=== PATIENT | male | born 1965 | race Caucasian/White ===

== ENCOUNTER 2016-11-17 08:31 | Emergency (ER) | payer OTHER ==
[2016-11-17] MEDS ORDERED: Ibuprofen TAB* 600 MG PO ONE (10:07)
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
[2016-11-17 10:46] VITALS: BP 145/85
--- NOTE | 2016-11-17 10:46 | RAD ---
Indication: LEFT ankle pain and swelling following injury. Superior and medial pain. Comparison: June 18, 2015 Technique: AP, mortise, and lateral views LEFT ankle. Report: Congruent ankle mortise. Indolent periosteal thickening along the lateral margin of the lateral malleolus is chronic. No fracture or osteochondral lesion evident. Suggestion of talocrural joint effusion. Edema at the pre-Achilles fat. Small Achilles tendon insertion bone spur. Soft tissue swelling most prominent over the medial malleolus. IMPRESSION: Soft tissue swelling and evidence for talocrural joint effusion. Negative for fracture or malalignment. Consider potential ligament injury.
== END 2016-11-17 11:10 | disposition home or self-care (01) ==
LOC: UCEAST 08:31
DX: S93.402A Sprain of unspecified ligament of left ankle, initial encounter (principal); S60.022A Contusion of left index finger without damage to nail, initial encounter; V86.59XA Driver of other special all-terrain or other off-road motor vehicle injured in nontraffic accident, initial encounter; Y93.89 Activity, other specified; Y92.9 Unspecified place or not applicable; R03.0 Elevated blood-pressure reading, without diagnosis of hypertension; Z88.1 Allergy status to other antibiotic agents; F12.90 Cannabis use, unspecified, uncomplicated; Z87.891 Personal history of nicotine dependence
CPT/HCPCS: 99213; A9270-GY; G0463

== ENCOUNTER 2018-03-03 18:47 | Emergency (ER) | payer OTHER ==
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
[2018-03-03] MEDS ORDERED: NS 0.9% 1000 ML* 1,000 ML IV ONE (19:55)
[2018-03-03] MEDS ORDERED: HYDROmorphone INJ* 2 MG/ML CARPUJECT SYRINGE IV SLOW PU ONE (19:55)
[2018-03-03] MEDS ORDERED: Metoclopramide IV* 5 MG/ML 2 ML VIAL IV SLOW PU ONE (19:56)
--- NOTE | 2018-03-03 20:12 | RAD ---
INDICATION: Left clavicle trauma. TECHNIQUE: 2 views of the left clavicle were obtained. FINDINGS: There is a transverse slightly comminuted displaced fracture of the clavicle approximately at the junction of the middle and lateral thirds. The distal lateral fragment is displaced inferior one shaft diameter. There are 2 nodular calcific densities which project over the chest likely representing calcific debris less likely calcified pulmonary nodules. There is also calcific debris which projects over the soft tissues superior to the clavicle. IMPRESSION: 1. SLIGHTLY COMMINUTED DISPLACED FRACTURE OF THE CLAVICLE. 2. CALCIFIC DEBRIS IN OR ON THE SOFT TISSUES.
--- NOTE | 2018-03-03 20:15 | RAD ---
INDICATION: Left humerus injury. TECHNIQUE: 2 views of the left humerus were obtained. FINDINGS: The humerus appears intact. No fracture is seen. Again note is made of the displaced fracture of the clavicle. There is calcific debris that projects over the soft tissues in the arm. IMPRESSION: 1. DISPLACED FRACTURE OF THE CLAVICLE. NO ADDITIONAL FRACTURE IS SEEN. 2. CALCIFIC DEBRIS IN OR ON THE SOFT TISSUES. RECOMMEND CLINICAL CORRELATION.
[2018-03-03 20:17] LABS: ABS Basophils 0 10^3/ul (0-0.2); ABS Eosinophils 0 10^3/ul (0-0.6); ABS Lymphocytes 1.3 10^3/ul (1.0-4.8); ABS Monocytes 0.8 10^3/ul (0-0.8); ABS Neutrophils 15.8 10^3/ul (1.5-7.7); ABS Nucleated RBC 0 10^3/ul; Eosinophil % 0.1 % (0-6); Hematocrit 45 % (42-52); Hemoglobin 15.3 g/dl (14.0-18.0); Mean Corpuscular HGB Conc 34 g/dl (31-36); Mean Corpuscular Hemoglobin 31 pg (27-31); Mean Corpuscular Volume 93 fL (80-94); Mean Platelet Volume 9.5 um3 (7.4-10.4); Nucleated Red Blood Cells % 0; Platelet Count 211 10^3/ul (150-450); Red Blood Count 4.86 10^6/ul (4.00-5.40); Red Cell Distribution Width 13 % (10.5-15)
--- NOTE | 2018-03-03 20:24 | RAD ---
INDICATION: Left rib injury. COMPARISON: There are no prior studies available for comparison. TECHNIQUE: 4 views of the left ribs and dual-energy PA views of the chest were obtained. FINDINGS: The examination is limited due to positioning and the patient's clinical status. Again note is made of a displaced fracture of the clavicle. There appear to be fractures of the left lateral fourth through sixth ribs. The heart is within normal limits in size. The lungs are underinflated and grossly clear. No pleural effusion or pneumothorax is seen. There is slightly irregularly shaped calcific nodular densities which project over the left hemithorax likely representing calcific debris less likely calcified pulmonary nodules. The results of this exam were discussed with the referring clinician. IMPRESSION: 1. FRACTURES OF THE LEFT FOURTH THROUGH SIXTH LATERAL RIBS, AGE INDETERMINATE. 2. CALCIFIED NODULAR DENSITIES PROJECT OVER THE LEFT HEMITHORAX LIKELY REPRESENTING CALCIFIC DEBRIS LESS LIKELY CALCIFIED PULMONARY NODULES.
--- NOTE | 2018-03-03 20:25 | RAD ---
INDICATION: Left shoulder injury. TECHNIQUE: 4 views of the left shoulder were obtained. FINDINGS: Again note is made of a displaced fracture of the clavicle. No additional fracture is seen. Joint spaces appear maintained. There is calcific debris that projects over the soft tissues around the shoulder. IMPRESSION: 1. DISPLACED FRACTURE OF THE CLAVICLE, NO ADDITIONAL FRACTURE IS SEEN. 2. CALCIFIC DEBRIS IN OR ON THE SOFT TISSUES AROUND THE SHOULDER.
[2018-03-03 20:26] LABS: INR 0.94 (0.77-1.02)
[2018-03-03 20:34] LABS: EGFR Non-African American 66.8 (>60)
[2018-03-03] MEDS ORDERED: Iohexol 300* (CONTRAST) 10 ML SDV IV ONE (22:25)
[2018-03-03] MEDS ORDERED: Lidocaine 2% PF * 5 ML VIAL ONE (22:57)
[2018-03-03] MEDS ORDERED: Tetan/Diph/Pertus SYR(Tdap)* 0.5 ML SYR(BOOSTRIX) use SYR IM ONE (23:38)
[2018-03-04 00:05] VITALS: BP 153/99
--- NOTE | 2018-03-04 08:00 | RAD ---
INDICATION: Pain in the distal fourth and fifth phalanges following injury. COMPARISON: No relevant prior exams available on the [facility] [place] PACS for comparison. TECHNIQUE: AP, lateral, and oblique views LEFT hand. REPORT AND IMPRESSION: #. Grossly nondisplaced fracture at the dorsal articular base of the fifth distal phalanx. #. Negative for additional fracture or articular malalignment. #. Soft tissue swelling most prominent at the fifth finger. R2
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
== END 2018-03-04 00:03 | disposition home or self-care (01) ==
LOC: ED 18:47
DX: S42.002A Fracture of unspecified part of left clavicle, initial encounter for closed fracture (principal); S22.42XA Multiple fractures of ribs, left side, initial encounter for closed fracture; S62.667A Nondisplaced fracture of distal phalanx of left little finger, initial encounter for closed fracture; V28.4XXA Motorcycle driver injured in noncollision transport accident in traffic accident, initial encounter; Y93.55 Activity, bike riding; Y92.9 Unspecified place or not applicable; J98.9 Respiratory disorder, unspecified; Z87.898 Personal history of other specified conditions; Z88.3 Allergy status to other anti-infective agents
CPT/HCPCS: 36415; 71260; 74177; 80053; 80320; 82150; 82550; 83605; 85025; 85610; 85730; 86850; 86900; 86901; 90715; 96361; 96374; 96375; 99283; G0480; J1170; J2765; Q9967

== ENCOUNTER 2018-03-20 08:09 | Day surgery (SDC) | payer OTHER ==
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
[~2018-03-20 08:09] MED LIST: Buffered Lidocaine 0.9% SYRIN* 5 ML/SYR SYRINGE INTRADERM ONE
[2018-03-20] MEDS ORDERED: ceFAZolin 2 GM PREMIX (*) 2 GM/50 ML BAG IVPB ONE (08:39)
[2018-03-20] MEDS ORDERED: Clindamycin 900 MG IVPREMIX(* 900 MG/50 ML SDV IV ONE (09:16)
[2018-03-20] MEDS ORDERED: fentaNYL* 50 MCG/ML 2 ML VIAL (100 MCG VIAL) ONE ×3 (09:57→12:57)
[2018-03-20] MEDS ORDERED: Midazolam* 1 MG/ML 2 ML VIAL (2 MG) ONE (09:58)
[2018-03-20] MEDS ORDERED: Famotidine IV* 10 MG/ML 2 ML (20 mg) ONE (10:19)
[2018-03-20] MEDS ORDERED: ROPIVACAINE 5 MG/ML 30 ML BTL (0.5%) ONE (10:45)
[2018-03-20] MEDS ORDERED: Ropivacaine* 2 MG/ML 20 ML VIAL (0.2%) ONE (11:00)
[2018-03-20] MEDS ORDERED: Ketorolac INJ* 30 MG/ML 1 ML VIAL ONE (11:17)
[2018-03-20] MEDS ORDERED: Ondansetron INJ* 2 MG/ML VIAL ONE (11:17)
[2018-03-20] MEDS ORDERED: Succinylcholine* 20 MG/ML 10 ML VIAL ONE (11:17)
[2018-03-20] MEDS ORDERED: Dexamethasone IV* 4 MG/ML 1 ML (4 MG) ONE (11:17)
[2018-03-20] MEDS ORDERED: Lidocaine 2% PF * 5 ML VIAL ONE (11:17)
[2018-03-20] MEDS ORDERED: Propofol* 10 MG/ML 20 ML BTL IV PUSH ONE (11:17)
[2018-03-20] MEDS ORDERED: Naloxone* 0.4 MG/ML 1 ML VIAL IV PRN (11:44)
[2018-03-20] MEDS ORDERED: HYDROmorphone INJ1* 1 MG/ML SYRINGE ONE (12:58)
[2018-03-20] MEDS: fentaNYL* 50 MCG/ML 2 ML VIAL (100 MCG VIAL) IV PRN ×4 (12:59→13:17)
[2018-03-20] MEDS: HYDROmorphone INJ* 0.5 MG/0.5 ML SYRINGE IV PRN ×2 (13:01→13:11)
[2018-03-20] MEDS ORDERED: oxyCODONE/Acetamin 5/325 MG* TAB ONE ×2 (13:15→13:50)
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
[2018-03-20 16:00] VITALS: BP 148/94
--- NOTE | 2018-03-20 16:04 | RAD ---
INDICATION: Postop chest x-ray. COMPARISON: Correlation is made with a prior x-ray study of the left clavicle from March 15, 2018. TECHNIQUE: A portable upright view of the chest was obtained. FINDINGS: The heart is within normal limits in size. Mediastinal and hilar contours appear within normal limits. The lungs are clear. No pleural effusion or pneumothorax is seen. The patient is status post operative reduction internal fixation of the left clavicle. IMPRESSION: 1. NO EVIDENCE FOR ACUTE DISEASE IN THE CHEST. 2. POSTSURGICAL CHANGES IN THE LEFT CLAVICLE.
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
== END 2018-03-20 16:05 | disposition home or self-care (01) ==
LOC: OR 08:09
PROVIDERS: ATTEND Orthopaedic Surgery
DX: S42.022A Displaced fracture of shaft of left clavicle, initial encounter for closed fracture (principal); V86.56XA Driver of dirt bike or motor/cross bike injured in nontraffic accident, initial encounter; Y92.89 Other specified places as the place of occurrence of the external cause; K21.9 Gastro-esophageal reflux disease without esophagitis; S22.49XA Multiple fractures of ribs, unspecified side, initial encounter for closed fracture
CPT/HCPCS: 71045; 76001; A9270-GY; C1713; C1776; J0330; J0690; J1100; J1170; J1885; J2250; J2405; J2704; J2795; J3010